=== PATIENT | male | born 1970 | race Caucasian/White ===

== ENCOUNTER 2016-10-08 16:25 | Emergency (ER) | payer MEDICARE ==
[2016-10-08] MEDS ORDERED: Sodium Chloride 0.9% 1000 ML 1,000 ML IV SCH (19:15)
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
[2016-10-08] MEDS ORDERED: Sodium Chloride 0.9% 1000 ML 1,000 ML ONE (20:02)
[2016-10-08 20:03] LABS: Mean Cell Volume 100.2 fl (78-100); Mean Corpuscular Hemoglobin 33.6 pg (26-32); Mean Platelet Volume 11.4 fl (6-9.5); Platelet Count 153 K/mm3 (150-450); Red Blood Count 5.12 M/mm3 (4.1-5.6); Red Cell Distribution Width 13.8 % (11.5-14.0); White Blood Count 18.7 K/mm3 (4.0-10.5)
[2016-10-08] MEDS ORDERED: Zofran 4 MG/2 ML VIAL IV ONE (20:03)
[2016-10-08] MEDS ORDERED: Hydromorphone 1 mg/ml Ampule IV ONE (20:04)
[2016-10-08] MEDS ORDERED: Zofran 4 MG/2 ML VIAL ONE (20:07)
[2016-10-08] MEDS ORDERED: Hydromorphone 1 mg/ml Ampule ONE (20:08)
[2016-10-08] MEDS ORDERED: Levofloxacin 500MG/100ML D5W 100 ML IV ONE ×2 (20:11→20:19)
[2016-10-08 20:26] LABS: ANION GAP 17.7 MEQ/L (5-15); BLOOD UREA NITROGEN 10 mg/dL (9-20); CHLORIDE 102 mEq/L (98-107); Glucose 114 MG/DL (70-110); Potassium 3.7 mEq/L (3.5-5.1); SODIUM 138 mEq/L (136-145)
[2016-10-08 20:42] LABS: Collection Type CATH
[2016-10-08 20:43] LABS: Bacteria PACKED /HPF (NEGATIVE); COMPLETE URINE MICROSCOPIC? YES; Epithelial Cells RARE /HPF (FEW); Mucus MANY /HPF (NEGATIVE); WBC 50-100 /HPF (0-5)
[2016-10-08 22:05] VITALS: BP 140/100; PULSE 86; O2SAT 96
[2016-10-08 22:06] LABS: ANISOCYTOSIS 1+; Eosinophil 1 % (0.00-3.0); Platelet Estimate NORMAL (NORMAL); Total Cells Counted 100
== END 2016-10-08 22:05 | disposition short-term general hospital (02) ==
LOC: ED 16:25
DX: N30.00 Acute cystitis without hematuria (principal); R31.0 Gross hematuria; G82.50 Quadriplegia, unspecified; T83.89XA Other specified complication of genitourinary prosthetic devices, implants and grafts, initial encounter
CPT/HCPCS: 36000; 36415; 80048; 81000; 85025; 87040; 96360; 96365; 96374; 96375; 99285; J1170; J1956; J2405

== ENCOUNTER 2016-12-09 16:24 | Emergency (ER) | payer MEDICARE ==
[~2016-12-09 16:24] MED LIST: Effient 10 MG TABLET PO ONE; Ntg 0.2MG/Ml in D5W GLASS*** 250 ML IV ONE
[2016-12-09] MEDS ORDERED: BABY ASPIRIN 81 MG CHEW PO ONE (16:28)
[2016-12-09] MEDS ORDERED: Nitrostat 0.4 MG (ED) SL ONE (16:28)
[2016-12-09] MEDS ORDERED: Sodium Chloride 0.9% 1000 ML 1,000 ML IV SCH (16:30)
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
[2016-12-09 16:55] LABS: BASOPHIL % 0.7 % (0.0-0.4); Eosinophil % 2.1 % (0.00-5.0); Granulocytes % 55.8 % (36.0-66.0); Lymphocytes % 32.3 % (24.0-44.0); Mean Cell Volume 99.5 fl (78-100); Mean Corpuscular Hemoglobin 34.1 pg (26-32); Mean Platelet Volume 10.5 fl (6-9.5); Monocytes % 9.1 % (0.0-12.0); Platelet Count 169 K/mm3 (150-450); Red Blood Count 4.13 M/mm3 (4.1-5.6); Red Cell Distribution Width 13.6 % (11.5-14.0); White Blood Count 4.4 K/mm3 (4.0-10.5)
[2016-12-09 17:13] LABS: INR 0.99 (0.8-3.0); PROTIME 11.2 SECONDS (8.83-12.87)
[2016-12-09 17:16] LABS: PTT 28.8 SECONDS (24.1-36.1)
[2016-12-09 17:22] LABS: ALBUMIN 3.7 g/dL (3.4-5.0); ALKALINE PHOSPHATASE 100 U/L (46-116); ANION GAP 11.7 MEQ/L (5-15); BLOOD UREA NITROGEN 8 mg/dL (9-20); CHLORIDE 105 mEq/L (98-107); Carbon Dioxide 29.2 mEq/L (21-32); Glucose 174 MG/DL (70-110); LIPASE 441 U/L (73-393); Potassium 3.6 mEq/L (3.5-5.1); SGOT/AST 16 U/L (15-37); SGPT/ALT 20 U/L (12-78); SODIUM 142 mEq/L (136-145); Total Protein 7.5 gm/dL (6.4-8.2)
[2016-12-09 17:59] VITALS: BP 93/49; PULSE 96; O2SAT 97
--- NOTE | 2016-12-10 08:21 | XRAY ---
Exam: AP supine portable chest film from 1655 hrs. on 12/09/2016. Comparison: AP upright portable chest film from 11/07/2015. Indication: Chest pain. Findings: The patient is rotated slightly toward the left. Also, there is some left lateral tilting of the upper torso. Inflation of the lungs is average. Pulmonary vascularity appears within normal limits. I see no focal air space infiltrates, pneumothorax, or definite pleural effusion. Some apparent costochondral calcification is seen at the anterior margin of the right first rib. No acute osseous process is seen. Lower thoracic dextroscoliosis is again seen. Impression: 1. No acute cardiopulmonary disease is seen. Specifically,, I see no findings of CHF or pulmonary edema.
== END 2016-12-09 19:22 | disposition short-term general hospital (02) ==
LOC: ED 16:24
DX: R07.9 Chest pain, unspecified (principal); R19.7 Diarrhea, unspecified; G82.50 Quadriplegia, unspecified
CPT/HCPCS: 36000; 36415; 71010; 80053; 82150; 83690; 83735; 83880; 84484; 85025; 85379; 85610; 85730; 93005; 93041; 96360; 96361; 96365; 96366; 99291; A9270-GY

== ENCOUNTER 2018-08-18 10:53 | Day surgery (SDC) | payer MEDICARE ==
[~2018-08-18 10:53] MED LIST changes: -Effient 10 MG TABLET PO ONE; +Lactated Ringers 1,000 ML IV ONE; -Ntg 0.2MG/Ml in D5W GLASS*** 250 ML IV ONE
[2018-08-18] MEDS ORDERED: Depo-Medrol 40 MG/ML IM ONE (10:54)
[2018-08-18] MEDS ORDERED: Marcaine 0.5% SDV 10 ML IJ ONE (10:54)
[2018-08-18] MEDS ORDERED: Decadron 4 MG INJ IV ONE (10:54)
--- NOTE | 2018-08-18 13:19 | XRAY ---
17 seconds fluoroscopy time in surgery for right hip injection.
--- NOTE | 2018-08-18 13:19 | XRAY ---
11 seconds fluoroscopy time in surgery for right knee injection.
--- NOTE | 2018-08-18 13:20 | XRAY ---
Indication: Right knee injection. Intraoperative fluoroscopy was provided for 11 seconds. Single digital spot image submitted for interpretation demonstrates needle tip projecting in the intercondylar notch. Small amount of contrast injected for needle tip placement. Correlate with intraoperative findings/report. Incidental partially visualized distal femur lateral fixation plate/screws.
--- NOTE | 2018-08-18 13:20 | XRAY ---
Indication: Right hip injection. Intraoperative fluoroscopy was provided for 17 seconds. Single digital spot image submitted for interpretation demonstrates needle tip projecting adjacent to the greater trochanter. Small amount of contrast injected for needle tip placement. Correlate with intraoperative findings/report.
== END 2018-08-18 13:07 | disposition home or self-care (01) ==
LOC: SDC-PAIN 10:53
PROVIDERS: ATTEND Psychiatry & Neurology Pain Medicine
DX: M70.61 Trochanteric bursitis, right hip (principal); M17.11 Unilateral primary osteoarthritis, right knee; Z79.899 Other long term (current) drug therapy
CPT/HCPCS: 20611; 73501; 73560; 77002; J1030; J1100; Q9967

== ENCOUNTER 2018-09-15 14:09 | Day surgery (SDC) | payer MEDICARE ==
[2018-09-15] MEDS ORDERED: Xylocaine 1% Vial 30 ML PF IJ ONE (14:10)
[2018-09-15] MEDS ORDERED: Marcaine 0.5% SDV 10 ML IJ ONE (14:10)
[2018-09-15] MEDS ORDERED: Depo-Medrol 40 MG/ML IM ONE (14:10)
--- NOTE | 2018-09-15 16:26 | XRAY ---
Indication: Right hip injection. Intraoperative fluoroscopy was provided for 16 seconds. Single digital spot image submitted for interpretation demonstrates needle tip lateral to the right femur head. Small amount of contrast injected for needle tip placement. Correlate with intraoperative findings/report.
--- NOTE | 2018-09-15 16:26 | XRAY ---
16 seconds fluoroscopy time in surgery for right hip injection.
== END 2018-09-15 16:18 | disposition home or self-care (01) ==
LOC: SDC-PAIN 14:09
PROVIDERS: ATTEND Psychiatry & Neurology Pain Medicine
DX: M25.551 Pain in right hip (principal); M16.11 Unilateral primary osteoarthritis, right hip; Z79.899 Other long term (current) drug therapy
CPT/HCPCS: 73501; 77002; J1030; J2001

== ENCOUNTER 2019-06-17 15:27 | Emergency (ER) | payer MEDICARE ==
[2019-06-17 16:29] VITALS: BP 115/71; PULSE 70; O2SAT 99
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
== END 2019-06-17 17:23 | disposition home or self-care (01) ==
LOC: ED 15:27
DX: L02.31 Cutaneous abscess of buttock (principal); Z79.899 Other long term (current) drug therapy
CPT/HCPCS: 87070; 87077; 87186; 99283

== ENCOUNTER 2019-06-22 14:06 | Emergency (ER) | payer MEDICARE ==
[2019-06-22 14:24] VITALS: BP 95/80; O2SAT 98
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
[2019-06-22 15:57] VITALS: PULSE 70
== END 2019-06-22 16:06 | disposition home or self-care (01) ==
LOC: ED 14:06
DX: L02.416 Cutaneous abscess of left lower limb (principal); Z48.00 Encounter for change or removal of nonsurgical wound dressing; G82.50 Quadriplegia, unspecified
CPT/HCPCS: 99283

== ENCOUNTER 2021-03-07 13:52 | Day surgery (SDC) | payer MEDICARE ==
--- NOTE | 2021-03-04 08:55 | HP ---
DATE OF SURGERY: 03/07/2021 HISTORY OF PRESENT ILLNESS: The patient presents with a chronic left buttock ulcer this appears to be a pressure ulcer. He had been seen at the wound center for some time. He has a tiny, deep to bone wound on the left buttock. PAST MEDICAL HISTORY: Hypertension, heart disease, coronary artery disease, seizure disorder. PAST SURGICAL HISTORY: Neck surgery. Right hip repair. ALLERGIES: PENICILLINS. MEDICATIONS: Nitroglycerin, oxybutynin, oxycodone, potassium, torsemide, vitamin C, baclofen, Bactrim, Plavix, carbamazepine, Colace, dantrolene, duloxetine, Nexium, Reglan. FAMILY HISTORY: Diabetes, thyroid cancer, bladder cancer, hypertension. SOCIAL HISTORY: Chewing tobacco half can a day. Denies alcohol. REVIEW OF SYSTEMS: CONSTITUTIONAL: Denies fever or chills. CHEST: Denies shortness of breath. CVS: Denies chest pain. ABDOMEN: Denies abdominal pain. INTEGUMENTARY: Reports chronic wound in the hip left buttock area. PHYSICAL EXAMINATION: GENERAL: No acute distress. CHEST: Nonlabored. No shortness of breath. CVS: Regular rate and rhythm. ABDOMEN: Soft. INTEGUMENTARY: Deep to bone left buttock chronic ulcer. 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 PLAN: Debridement including bone of deep left buttock ulcer with Dr. Jenaro Lemos. As dictated by Amparo Marquez NP.
[~2021-03-07 13:52] MED LIST changes: +Sensorcaine 0.25% 10 ML ONE
[2021-03-07] MEDS ORDERED: Lactated Ringers 1,000 ML IV SCH (14:30)
[2021-03-07] MEDS ORDERED: Lactated Ringers 1,000 ML IV ONE (14:41)
[2021-03-07] MEDS ORDERED: Decadron 4 MG INJ ONE (15:45)
[2021-03-07] MEDS ORDERED: Zofran 4 MG/2 ML VIAL ONE (15:45)
[2021-03-07] MEDS ORDERED: DIPRIVAN 200 MG/20 ML IV ONE (15:45)
[2021-03-07] MEDS ORDERED: Xylocaine-Mpf 2% 5 Ml Vial ONE (15:45)
[2021-03-07] MEDS ORDERED: SUBLIMAZE 100 MCG/2 ML ONE (15:45)
[2021-03-07] MEDS ORDERED: ROBINUL ONE (16:18)
[2021-03-07] MEDS ORDERED: Ephedrine Sulfate 50 MG/ML ONE (16:18)
[2021-03-07 19:17] VITALS: BP 152/86; PULSE 64
[2021-03-07 19:20] VITALS: O2SAT 98
--- NOTE | 2021-03-11 10:34 | OP ---
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 POSTOPERATIVE DIAGNOSIS: The patient has an area about 4 x 3 inches elliptical over the sacrum with some granulation and nonhealing tissue. PROCEDURE: Major debridement including the skin, subcu, deep fascia, some muscle, some periosteum, this was a major debridement of sacral decubitus. It was openly packed. The patient tolerated the procedure satisfactory. SURGEON: Jenaro Lemos M.D. ANESTHESIA: General. ESTIMATED BLOOD LOSS: 300. DRAINS: None. INDICATION: The patient had a tunnel fistula it probed about 4 inches. It just was not getting better despite excellent wound care. DESCRIPTION OF PROCEDURE: He was taken to the OR, placed in semi-prone position. Routine prep and drape. The fistula tract was opened slightly. A plastic suction was placed. It was then opened up over the top of the plastic suction. It was necessary to open this up totally. An ellipse of skin was taken including the skin, subcutaneous tissue, the deep fascia. The deep fascia was taken down to musculature, a little bit of musculature was taken. A little bit of peritoneum was taken. It was necessary to ligate the legitimate small vessels at the top edge of the field. At this time the entire field had been cleaned up. It was dry. It was packed with a very light saline Kerlix fairly tightly this evening. Sterile dressing on the outside. The patient tolerated the procedure satisfactorily.
== END 2021-03-07 19:10 | disposition home or self-care (01) ==
LOC: SDC 13:52
PROVIDERS: ATTEND Surgery
DX: L89.153 Pressure ulcer of sacral region, stage 3 (principal); L98.8 Other specified disorders of the skin and subcutaneous tissue
CPT/HCPCS: 87070; 87075; J1100; J2405; J2704; J3010

== ENCOUNTER 2021-07-15 14:48 | Emergency (ER) | payer MEDICARE ==
[2021-07-15] MEDS ORDERED: XYLOCAINE 1% HCL 20 ML MDV IJ ONE (14:49)
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
[2021-07-15 20:16] VITALS: PULSE 71; O2SAT 95
[2021-07-15 20:40] LABS: Appearance CLOUDY (CLEAR); Bacteria MODERATE /HPF (NEGATIVE); Bilirubin NEGATIVE (NEGATIVE); Blood NEGATIVE Ery/ul (0-5); Epithelial Cells RARE /HPF (FEW); Glucose NEGATIVE (NEGATIVE); Ketones SMALL (NEGATIVE); Leukocyte Esterase LARGE (NEGATIVE); Mucus SLIGHT /HPF (NEGATIVE); Nitrite POSITIVE (NEGATIVE); Protein,Urine Dip 30 (Negative); Specific Gravity 1.015 (1.005-1.025); Urobilinogen NEGATIVE mg/dL (0-1); WBC >100 /HPF (0-5)
[2021-07-15 20:46] LABS: Budding Yeast Many /HPF (NEGATIVE)
[2021-07-15] MEDS ORDERED: Rocephin 1000 MG INJ IM ONE (21:05)
[2021-07-15 21:08] VITALS: BP 108/72
[2021-07-15] MEDS ORDERED: Rocephin 1000 MG INJ ONE (21:08)
== END 2021-07-15 21:44 | disposition home or self-care (01) ==
LOC: ED 14:48
DX: N39.0 Urinary tract infection, site not specified (principal); R14.0 Abdominal distension (gaseous); G82.50 Quadriplegia, unspecified; S14.104S Unspecified injury at C4 level of cervical spinal cord, sequela; S12.300S Unspecified displaced fracture of fourth cervical vertebra, sequela; S12.400S Unspecified displaced fracture of fifth cervical vertebra, sequela; Z86.718 Personal history of other venous thrombosis and embolism; Z79.01 Long term (current) use of anticoagulants; Z79.891 Long term (current) use of opiate analgesic; Z79.899 Other long term (current) drug therapy
CPT/HCPCS: 81001; 87086; 93005; 96372; 99284; J0696

== ENCOUNTER 2022-09-09 11:29 | Emergency (ER) | payer MEDICARE ==
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
[2022-09-09 12:09] VITALS: BP 97/66; PULSE 70; O2SAT 98
== END 2022-09-09 12:11 | disposition home or self-care (01) ==
LOC: ED 11:29
DX: H11.31 Conjunctival hemorrhage, right eye (principal); G82.50 Quadriplegia, unspecified; S14.104S Unspecified injury at C4 level of cervical spinal cord, sequela; Z99.3 Dependence on wheelchair; Z79.02 Long term (current) use of antithrombotics/antiplatelets; Z79.891 Long term (current) use of opiate analgesic; Z79.899 Other long term (current) drug therapy
CPT/HCPCS: 99281

== ENCOUNTER 2024-01-07 08:34 | Day surgery (SDC) | payer MEDICARE ==
[2024-01-07] MEDS ORDERED: CLINDAMYCIN-D5W 900 MG/50 ML*** 900 MG/50 ML BAG IV STA (08:47)
[2024-01-07] MEDS ORDERED: CLINDAMYCIN-D5W 900 MG/50 ML*** 900 MG/50 ML BAG IV ONE (08:50)
[2024-01-07] MEDS ORDERED: Lactated Ringers 1,000 ML IV ONE ×2 (08:51→12:37)
[2024-01-07] MEDS: CLINDAMYCIN-D5W 900 MG/50 ML*** 900 MG/50 ML BAG IV SCH (08:51)
[2024-01-07] MEDS: Lactated Ringers 1,000 ML IV SCH (08:52)
[2024-01-07 09:24] VITALS: RESP 16; O2SAT 97
[2024-01-07] MEDS ORDERED: Reglan 10 MG/2 ML ONE (09:24)
[2024-01-07] MEDS ORDERED: Pepcid 20 MG VIAL IV ONE (09:24)
[2024-01-07] MEDS: Pepcid 20 MG VIAL IV ONE (09:27)
[2024-01-07] MEDS: Reglan 10 MG/2 ML IV ONE (09:27)
[2024-01-07 09:30] LABS: Absolute Neutrophil Ct (ANC) 3.86 x10^3/uL (1.78-5.38); BASOPHIL % 0.6 % (0.2-1.2); Basophil (Absolute #) 0.04 x10^3/uL (0.01-0.08); Eosinophil % 3.1 % (0.8-7.0); Hemoglobin 11.6 g/dL (13.7-17.5); IMMATURE GRAN # 0.01 x10^3u/L (0.001-0.031); IMMATURE GRAN % 0.2 % (0.001-0.429); Lymphocyte (Absolute #) 1.74 x10^3/uL (1.32-3.57); Lymphocytes % 27.1 % (21.8-53.1); Mean Cell Volume 96.4 fL (79.0-92.2); Mean Corpuscular Hgb Concent. 33.1 g/dL (32.3-36.5); Mean Platelet Volume 10.1 fL (9.4-12.4); Monocyte (Absolute #) 0.58 x10^3/uL (0.30-0.82); Platelet Count 200 x10^3/uL (163-337); Red Blood Count 3.63 x10^6/uL (4.63-6.08); Red Cell Distribution Width 13.5 % (11.6-14.4); White Blood Count 6.4 x10^3/uL (4.23-9.07)
[2024-01-07 09:42] LABS: ALBUMIN 3.9 g/dL (3.5-5.0); BILIRUBIN,TOTAL 0.1 mg/dL (0.2-1.3); Creatinine 1 0.89 mg/dL (0.66-1.25); EST GLOMERULAR FILTRATION RATE 102.5 ML/MIN; Potassium 3.7 mmol/L (3.5-5.1)
[2024-01-07] MEDS ORDERED: Sensorcaine 0.25% 10 ML ONE (10:51)
[2024-01-07] MEDS ORDERED: DIPRIVAN 200 MG/20 ML IV ONE (12:01)
[2024-01-07] MEDS ORDERED: Xylocaine-Mpf 2% 5 Ml Vial ONE (12:01)
[2024-01-07] MEDS ORDERED: Versed 2 MG/2 ML Injection ONE (12:02)
[2024-01-07] MEDS ORDERED: SUBLIMAZE 100 MCG/2 ML ONE (12:03)
[2024-01-07] MEDS ORDERED: ROCURONIUM BROMIDE IV ONE (12:05)
[2024-01-07] MEDS ORDERED: BRIDION 200MG/2ML IV ONE (13:04)
[2024-01-07] MEDS ORDERED: Zofran 4 MG/2 ML VIAL ONE (13:04)
[2024-01-07 14:44] VITALS: PULSE 52
[2024-01-07 15:01] VITALS: BP 92/61; TEMP 96.9
--- NOTE | 2024-01-08 11:28 | OP ---
SURGERY DATE/TIME: 01/07/2024 7742 - [id number] PREOPERATIVE DIAGNOSIS: Persistent tunneling and tract, not yielding well to wound care. POSTOPERATIVE DIAGNOSIS: Persistent tunneling and tract, not yielding well to wound care. PROCEDURE: Wide opening with marsupialization of a left buttock wound. It was opened to 8 cm x 8 cm and then marsupialized down from there. SURGEON: Jenaro Lemos MD ANESTHESIA: General. DESCRIPTION OF PROCEDURE AND FINDINGS: Patient brought to surgery. There was a hole, about 1 inch big. The rest of the path of about 20 inches had healed up. At this time, there was a lot of tunneling here. There was tunneling 6 cm towards the anus and 4 cm laterally. This was elliptically opened up along the previous tract. Hemostasis obtained with electrocautery. Hemostasis obtained with sutures, 2-0 chromic and 2-0 PDS. It was then marsupialized, at least 90% of it was, and this helped quite a bit. I marsupialized down to the posterior granulation tissue. The skin was brought down there. It was dry and sterile dressing applied. We could go to wound VAC shortly, probably in the next week or two.
== END 2024-01-07 15:17 | disposition home or self-care (01) ==
LOC: SDC 08:34
PROVIDERS: ATTEND Surgery
DX: S31.839A Unspecified open wound of anus, initial encounter (principal)
CPT/HCPCS: 36415; 80053; 85025; 93005; J2250; J2405; J2704; J3010

== ENCOUNTER 2025-03-17 20:12 | Emergency (ER) | payer MEDICARE ==
[2025-03-17 20:46] VITALS: TEMP 98.3
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
[2025-03-17] MEDS ORDERED: XYLOCAINE 1% HCL 20 ML MDV ONE (21:29)
[2025-03-17] MEDS: XYLOCAINE 1% HCL 20 ML MDV IJ ONE (21:30)
[2025-03-17 22:28] VITALS: RESP 20
[2025-03-17 22:38] VITALS: O2SAT 99
[2025-03-17 23:12] VITALS: BP 89/49; PULSE 71
--- NOTE | 2025-03-18 07:53 | XRAY ---
Indication: Pain. Comparison: None 2 nonweightbearing views left foot demonstrates osteopenia, mild 1st MTP degenerative changes, partial excision mid to distal 5th metatarsal, mild scattered vascular calcifications, and mild diffuse soft tissue swelling/edema. No other bony, articular, or soft tissue abnormalities.
== END 2025-03-17 23:13 | disposition home or self-care (01) ==
LOC: ED 20:12
DX: S91.115A Laceration without foreign body of left lesser toe(s) without damage to nail, initial encounter (principal); M79.89 Other specified soft tissue disorders; Z79.899 Other long term (current) drug therapy